=== PATIENT | female | born 1975 | race African-American/Black ===

== ENCOUNTER 2018-11-27 09:12 | Emergency (ER) | payer MEDICAID ==
[~2018-11-27] VITALS: Ht 167.6 cm; Wt 114.0 kg
[2018-11-27 09:26] VITALS: BP 139/88
== END 2018-11-27 11:50 | disposition home or self-care (01) ==
LOC: ER 09:24
DX: S93.401A Sprain of unspecified ligament of right ankle, initial encounter (principal); F12.10 Cannabis abuse, uncomplicated; Z98.890 Other specified postprocedural states; W50.2XXA Accidental twist by another person, initial encounter; Y93.89 Activity, other specified; Y92.89 Other specified places as the place of occurrence of the external cause; Y99.8 Other external cause status
CPT/HCPCS: 73610; 73630; 99283